=== PATIENT | male | born 1985 | race Two or more races ===

== ENCOUNTER 2020-01-21 14:47 | Inpatient (IN) | payer MEDICARE, OTHER ==
[~2020-01-21] VITALS: Ht 167.6 cm; Wt 85.3 kg
[2020-01-21] MEDS ORDERED: ONDANSETRON HCL 4MG/2ML INJ IV STA ×2 (15:20→17:23)
[2020-01-21] MEDS ORDERED: SODIUM CHLORIDE 0.9% 1,000 ML IV ONE (15:20)
[2020-01-21] MEDS ORDERED: FAMOTIDINE 20MG/2ML VIAL IV STA (15:20)
[2020-01-21] MEDS ORDERED: KETOROLAC 30MG/ML VIAL IV STA (15:20)
[2020-01-21 15:37] LABS: BASOPHILS % 0.7 % (0.0-2.0); EOSINOPHILS % 0.1 % (0.0-5.0); HEMATOCRIT. 51.7 % (42.0-52.0); HEMOGLOBIN. 17.8 g/dL (14.0-18.0); LYMPHOCYTES % 17.8 % (20.0-50.0); MEAN CORPUSCULAR HEMOGLOBIN 30.9 pg (28.0-32.0); MEAN CORPUSCULAR VOLUME 89.5 fL (80.0-94.0); MEAN PLATELET VOLUME 8.9 fl (7.4-10.4); MONOCYTES % 9.7 % (2.0-8.0); NEUTROPHILS % 71.7 % (40.0-76.0); PLATELET 355 x1000/uL (130-400); RED BLOOD CELL COUNT 5.78 mill/uL (4.7-6.1)
[2020-01-21 15:40] LABS: CHLORIDE 100 mEq/L (98-107)
[2020-01-21 15:42] LABS: INR 1.2; PROTHROMBIN TIME 12.5 sec (9.6-11.0)
[2020-01-21 15:45] LABS: ETHANOL BLOOD < 10 mg/dL
[2020-01-21 16:01] LABS: CLARITY URINE CLOUDY (CLEAR); COLOR URINE DARK YELLOW (YELLOW); KETONES URINE 3+ (NEGATIVE); LEUKOCYTE ESTERASE URINE NEGATIVE (NEGATIVE); NITRITE URINE NEGATIVE (NEGATIVE); OCCULT BLOOD URINE 1+ (NEGATIVE); PH URINE 5.5 (4.5-8.0); PROTEIN URINE 2+ (NEGATIVE); SPECIFIC GRAVITY URINE 1.036 (1.005-1.030)
[2020-01-21] MEDS ORDERED: METOCLOPRAMIDE HCL 10MG/2ML VIAL IV ONE (16:15)
[2020-01-21] MEDS ORDERED: DIPHENHYDRAMINE 50MG/ML VIAL IV ONE (16:15)
[2020-01-21 16:36] LABS: *BARBITURATES SCREEN URINE NEGATIVE (NEGATIVE)
[2020-01-21 16:37] LABS: *AMPHETAMINES SCREEN URINE NEGATIVE (NEGATIVE); *BENZODIAZEPINES SCREEN URINE PRESUMTIVE POSITIVE (NEGATIVE); *COCAINE SCREEN URINE NEGATIVE (NEGATIVE); CANNABINOID URINE SCREEN PRESUMTIVE POSITIVE (NEGATIVE); METHADONE URINE SCREEN NEGATIVE (NEGATIVE); OPIATES URINE SCREEN NEGATIVE (NEGATIVE); PHENCYCLIDINE URINE SCREEN NEGATIVE (NEGATIVE)
[2020-01-21] MEDS ORDERED: MORPHINE SULFATE 4 MG/ML CPJ (NOT FOR IM USE) IV STA (17:23)
[2020-01-21] MEDS ORDERED: MORPHINE SULFATE 4 MG/ML CPJ (NOT FOR IM USE) IV ONE (18:45)
[2020-01-21] MEDS ORDERED: CLONIDINE 0.1MG TABLET PO PRN (20:30)
[2020-01-21] MEDS ORDERED: MAGNESIUM/ALUMINUM HYDROXIDE/SIMETHICONE 30ML UDC PO PRN (20:30)
[2020-01-21] MEDS ORDERED: IPRATROPIUM/ALBUTEROL 0.5-3(2.5)MG/3ML NEB NEB PRN (20:30)
[2020-01-21] MEDS ORDERED: ACETAMINOPHEN 325MG TABLET PO PRN (20:30)
[2020-01-21] MEDS ORDERED: ENOXAPARIN 40MG/0.4ML SYR SUBCUT SCH (21:00)
[2020-01-21] MEDS ORDERED: CEFTRIAXONE 1 G PREMIX 50 ML IV SCH (21:00)
[2020-01-21] MEDS: ONDANSETRON HCL 4MG/2ML INJ IV PRN (21:15)
[2020-01-21] MEDS ORDERED: HALOPERIDOL LACTATE 5MG/ML VIAL IM ONE (21:30)
[2020-01-21] MEDS: SODIUM CHLORIDE 0.9% 1,000 ML IV SCH (21:46)
[2020-01-21 23:05] VITALS: BP 145/84
[2020-01-22 00:23] LABS: CHLORIDE 103 mEq/L (98-107)
[2020-01-22 00:32] LABS: CREATINE KINASE 419 IU/L (39-308)
[2020-01-22 00:33] LABS: CREATINE KINASE MB FRACTION 1.1 ng/mL (0.5-3.6)
[2020-01-22] MEDS ORDERED: DIVA500T3 PO ×2 (03:22→03:31)
[2020-01-22] MEDS ORDERED: QUET25TA PO (03:23)
[2020-01-22 04:00] VITALS: BP 150/87
[2020-01-22] MEDS: ONDANSETRON HCL 4MG/2ML INJ IV PRN ×3 (04:51→21:34)
[2020-01-22] MEDS: HYDROCODONE/ACETAMINOPHEN 5/325MG TABLET PO PRN ×4 (06:17→22:22)
[2020-01-22 06:59] LABS: BASOPHILS % 0.4 % (0.0-2.0); EOSINOPHILS % 0.3 % (0.0-5.0); HEMATOCRIT. 44.5 % (42.0-52.0); HEMOGLOBIN. 15.2 g/dL (14.0-18.0); LYMPHOCYTES % 17.8 % (20.0-50.0); MEAN CORPUSCULAR HEMOGLOBIN 30.8 pg (28.0-32.0); MEAN PLATELET VOLUME 8.8 fl (7.4-10.4); MONOCYTES % 9.7 % (2.0-8.0); NEUTROPHILS % 71.8 % (40.0-76.0); PLATELET 262 x1000/uL (130-400); RED BLOOD CELL COUNT 4.95 mill/uL (4.7-6.1); RED CELL DISTRIBUTION WIDTH 14.8 % (11.6-14.6)
[2020-01-22 07:01] LABS: LDL CHOLESTEROL 117 mg/dL (5-100)
[2020-01-22 07:02] LABS: CREATINE KINASE 437 IU/L (39-308); HDL CHOLESTEROL 38 mg/dL (40-59)
[2020-01-22 07:04] LABS: CREATINE KINASE MB FRACTION 1.2 ng/mL (0.5-3.6)
[2020-01-22 08:00] VITALS: BP 131/81
[2020-01-22] MEDS: SODIUM CHLORIDE 0.9% 1,000 ML IV SCH (09:00)
[2020-01-22 11:19] LABS: UCG SCREEN NEGATIVE
[2020-01-22 12:00] VITALS: BP 125/74
[2020-01-22] MEDS: PANTOPRAZOLE SODIUM 40 MG/VIAL IV SCH (13:42)
[2020-01-22] MEDS ORDERED: METOCLOPRAMIDE HCL 10MG/2ML VIAL IV PRN (13:45)
[2020-01-22] MEDS: DIVALPROEX SODIUM 500MG DR TABLET PO SCH ×2 (15:00→21:29)
[2020-01-22 16:00] VITALS: BP 116/71
[2020-01-22] MEDS ORDERED: FOLIC ACID 1 MG, THIAMINE HCL 100 MG, MVI, ADULT NO.1 10 ML in DEXTROSE 5% WATER 1,000 ML IV NR ×4 (18:00)
[2020-01-22 20:00] VITALS: BP 116/77
[2020-01-22] MEDS ORDERED: CEFTRIAXONE 1,000 MG in DEXTROSE 5% WATER 50 ML IV SCH (21:00)
[2020-01-22] MEDS: DOCUSATE SODIUM 100MG CAPSULE PO PRN (21:41)
[2020-01-23] VITALS: BP 109/61
[2020-01-23 04:00] VITALS: BP 106/68
[2020-01-23] MEDS: SODIUM CHLORIDE 0.9% 1,000 ML IV SCH ×3 (05:41→22:37)
[2020-01-23 06:16] LABS: CHLORIDE 102 mEq/L (98-107)
[2020-01-23 06:23] LABS: BASOPHILS % 0.5 % (0.0-2.0); EOSINOPHILS % 1.9 % (0.0-5.0); HEMATOCRIT. 43.5 % (42.0-52.0); HEMOGLOBIN. 14.6 g/dL (14.0-18.0); LYMPHOCYTES % 47.2 % (20.0-50.0); MEAN CORPUSCULAR HEMOGLOBIN 30.6 pg (28.0-32.0); MEAN CORPUSCULAR VOLUME 90.9 fL (80.0-94.0); MEAN PLATELET VOLUME 8.6 fl (7.4-10.4); MONOCYTES % 9.1 % (2.0-8.0); NEUTROPHILS % 41.3 % (40.0-76.0); PLATELET 224 x1000/uL (130-400); RED BLOOD CELL COUNT 4.78 mill/uL (4.7-6.1); RED CELL DISTRIBUTION WIDTH 14.3 % (11.6-14.6)
[2020-01-23 06:31] LABS: PHOSPHORUS 3.8 mg/dL (2.5-4.9)
[2020-01-23 08:00] VITALS: BP 115/62
[2020-01-23] MEDS: DOCUSATE SODIUM 100MG CAPSULE PO PRN (08:53)
[2020-01-23] MEDS: PANTOPRAZOLE SODIUM 40 MG/VIAL IV SCH (08:53)
[2020-01-23] MEDS: DIVALPROEX SODIUM 500MG DR TABLET PO SCH ×2 (08:53→20:51)
[2020-01-23] MEDS: HYDROCODONE/ACETAMINOPHEN 5/325MG TABLET PO PRN ×3 (09:38→20:55)
[2020-01-23] MEDS: BISACODYL 10MG SUPP PR PRN (11:47)
[2020-01-23 12:00] VITALS: BP 149/98
[2020-01-23] MEDS: ONDANSETRON HCL 4MG/2ML INJ IV PRN ×2 (13:03→21:02)
[2020-01-23 16:00] VITALS: BP 149/94
[2020-01-23 20:00] VITALS: BP 112/82
[2020-01-24] VITALS: BP 119/74
[2020-01-24 04:00] VITALS: BP 103/56
[2020-01-24] MEDS: ONDANSETRON HCL 4MG/2ML INJ IV PRN (06:36)
[2020-01-24 07:05] LABS: BASOPHILS % 0.2 % (0.0-2.0); CHLORIDE 105 mEq/L (98-107); EOSINOPHILS % 2.3 % (0.0-5.0); HEMATOCRIT. 42.5 % (42.0-52.0); HEMOGLOBIN. 14.6 g/dL (14.0-18.0); MEAN CORPUSCULAR HEMOGLOBIN 30.9 pg (28.0-32.0); MEAN CORPUSCULAR VOLUME 90.1 fL (80.0-94.0); MEAN PLATELET VOLUME 8.4 fl (7.4-10.4); MONOCYTES % 10.4 % (2.0-8.0); NEUTROPHILS % 49.1 % (40.0-76.0); PLATELET 227 x1000/uL (130-400); RED BLOOD CELL COUNT 4.71 mill/uL (4.7-6.1); RED CELL DISTRIBUTION WIDTH 14.5 % (11.6-14.6)
[2020-01-24 08:00] VITALS: BP 116/78
[2020-01-24] MEDS: PANTOPRAZOLE SODIUM 40 MG/VIAL IV SCH (09:28)
[2020-01-24] MEDS: DIVALPROEX SODIUM 500MG DR TABLET PO SCH (09:29)
[2020-01-24] MEDS: SODIUM CHLORIDE 0.9% 1,000 ML IV SCH (09:33)
[2020-01-24] MEDS: BISACODYL 10MG SUPP PR PRN (09:41)
[2020-01-24 12:00] VITALS: BP 121/71
[2020-01-24] MEDS ORDERED: OMEP20CA14 MT (12:02)
[2020-01-24] MEDS ORDERED: ATOR10TA69 MT (12:02)
[2020-01-24 15:00] VITALS: BP 121/71
[2020-01-24 16:00] VITALS: BP 129/77
== END 2020-01-24 16:23 | disposition home or self-care (01) | DRG 384 ==
LOC: ER 14:58 → 6EST 19:20 → ENRESERV 20:40 → 6EST 01-23 21:29
PROVIDERS: ADMIT Internal Medicine; ATTEND Internal Medicine
DX: K27.9 Peptic ulcer, site unspecified, unspecified as acute or chronic, without hemorrhage or perforation (principal); N39.0 Urinary tract infection, site not specified; K29.70 Gastritis, unspecified, without bleeding; K57.30 Diverticulosis of large intestine without perforation or abscess without bleeding; E78.5 Hyperlipidemia, unspecified; F20.9 Schizophrenia, unspecified; F17.210 Nicotine dependence, cigarettes, uncomplicated; F12.10 Cannabis abuse, uncomplicated; J45.909 Unspecified asthma, uncomplicated; R80.9 Proteinuria, unspecified; Z87.11 Personal history of peptic ulcer disease; Z79.899 Other long term (current) drug therapy; Z71.41 Alcohol abuse counseling and surveillance of alcoholic; Z71.6 Tobacco abuse counseling
CPT/HCPCS: 36415; 74176; 80048; 80053; 80061; 80305; 80320; 81003; 81025; 82550; 82553; 83735; 84100; 84443; 84484; 85025; 93005; 93970; 96374; 99285; C9113; J0696; J1200; J1630; J1885; J2270; J2405; J2765; J3411; J3490; J7030; J7060; J7070; G0480

== ENCOUNTER 2020-03-21 02:02 | Inpatient (IN) | payer MEDICARE, OTHER ==
[~2020-03-21] VITALS: Ht 167.6 cm; Wt 73.0 kg
[~2020-03-21 02:02] MED LIST: ATOR10TA69 MT; DIVA500T3 PO; OMEP20CA14 MT; QUET25TA PO
[2020-03-21] MEDS ORDERED: ONDANSETRON HCL 4MG/2ML INJ IV STA (02:17)
[2020-03-21] MEDS ORDERED: SODIUM CHLORIDE 0.9% 1,000 ML IV ONE (02:30)
[2020-03-21] MEDS ORDERED: LORAZEPAM 2MG/ML CPJ IM ONE (03:00)
[2020-03-21] MEDS ORDERED: HALOPERIDOL LACTATE 5MG/ML VIAL IM ONE (03:00)
[2020-03-21 03:20] LABS: CHLORIDE 91 mEq/L (98-107)
[2020-03-21 03:24] LABS: ETHANOL BLOOD < 10 mg/dL
[2020-03-21 03:34] LABS: HEMATOCRIT. 55.1 % (42.0-52.0); MEAN CORPUSCULAR HEMOGLOBIN 30.7 pg (28.0-32.0); MEAN CORPUSCULAR VOLUME 89.1 fL (80.0-94.0); MEAN PLATELET VOLUME 8.8 fl (7.4-10.4); PLATELET 432 x1000/uL (130-400); RED BLOOD CELL COUNT 6.19 mill/uL (4.7-6.1); RED CELL DISTRIBUTION WIDTH 14.8 % (11.6-14.6)
[2020-03-21] MEDS: FAMOTIDINE 20MG/2ML VIAL IV SCH ×2 (03:37→10:18)
[2020-03-21] MEDS ORDERED: MORPHINE SULFATE 4 MG/ML CPJ (NOT FOR IM USE) IV NR (04:30)
[2020-03-21] MEDS ORDERED: CEFTRIAXONE 1 G PREMIX 50 ML IV ONE (05:15)
[2020-03-21 05:23] LABS: PLATELET ESTIMATE INCREASED
[2020-03-21] MEDS ORDERED: DOCUSATE SODIUM 100MG CAPSULE PO PRN ×2 (07:15→17:15)
[2020-03-21] MEDS ORDERED: ACETAMINOPHEN 325MG TABLET PO PRN ×2 (07:15→17:15)
[2020-03-21] MEDS ORDERED: GUAIFENESIN 200MG/10ML SUGAR FREE UDC PO PRN ×2 (07:15→18:15)
[2020-03-21] MEDS ORDERED: CLONIDINE 0.1MG TABLET PO PRN ×2 (07:15→17:15)
[2020-03-21] MEDS ORDERED: IPRATROPIUM/ALBUTEROL 0.5-3(2.5)MG/3ML NEB HHN PRN ×2 (07:15→18:15)
[2020-03-21] MEDS ORDERED: HYDROCODONE/ACETAMINOPHEN 10/325MG TABLET PO PRN (07:15)
[2020-03-21] MEDS ORDERED: CEFTRIAXONE 1 G PREMIX 50 ML IV SCH (07:15)
[2020-03-21] MEDS ORDERED: SODIUM CHLORIDE 0.45% 1,000 ML IV SCH ×2 (07:15→18:15)
[2020-03-21] MEDS ORDERED: LORAZEPAM 2MG/ML CPJ IV PRN (07:15)
[2020-03-21] MEDS ORDERED: ENOXAPARIN 40MG/0.4ML SYR SUBCUT SCH (07:15)
[2020-03-21] MEDS ORDERED: DIPHENHYDRAMINE 50MG/ML VIAL IV PRN ×2 (07:15→17:15)
[2020-03-21] MEDS ORDERED: MAGNESIUM/ALUMINUM HYDROXIDE/SIMETHICONE 30ML UDC PO PRN ×2 (07:15→18:15)
[2020-03-21] MEDS ORDERED: ONDANSETRON HCL 4MG/2ML INJ IV PRN (07:15)
[2020-03-21 08:00] VITALS: BP 150/98
[2020-03-21 08:19] LABS: CLARITY URINE TURBID (CLEAR); COLOR URINE DARK YELLOW (YELLOW); KETONES URINE TRACE (NEGATIVE); LEUKOCYTE ESTERASE URINE TRACE (NEGATIVE); NITRITE URINE NEGATIVE (NEGATIVE); OCCULT BLOOD URINE 3+ (NEGATIVE); PROTEIN URINE 2+ (NEGATIVE); SPECIFIC GRAVITY URINE 1.026 (1.005-1.030)
[2020-03-21 08:57] VITALS: BP 150/88
[2020-03-21] MEDS: DIVALPROEX SODIUM 500MG DR TABLET PO SCH ×2 (10:18→16:45)
[2020-03-21 10:31] LABS: BASOPHILS % 0.2 % (0.0-2.0); HEMATOCRIT. 53.8 % (42.0-52.0); HEMOGLOBIN. 18.5 g/dL (14.0-18.0); LYMPHOCYTES % 7.3 % (20.0-50.0); MEAN CORPUSCULAR VOLUME 90.1 fL (80.0-94.0); MEAN PLATELET VOLUME 8.6 fl (7.4-10.4); MONOCYTES % 7.8 % (2.0-8.0); NEUTROPHILS % 84.7 % (40.0-76.0); PLATELET 355 x1000/uL (130-400); RED BLOOD CELL COUNT 5.98 mill/uL (4.7-6.1); RED CELL DISTRIBUTION WIDTH 14.8 % (11.6-14.6)
[2020-03-21] MEDS: QUETIAPINE FUMARATE 25MG TABLET PO SCH (10:43)
[2020-03-21 12:00] VITALS: BP 136/82
[2020-03-21] MEDS ORDERED: SODIUM CHLORIDE 0.9% INJ 3ML FLUSH IVF SCH (14:00)
[2020-03-21 15:57] LABS: PHOSPHORUS 4.7 mg/dL (2.5-4.9)
[2020-03-21 16:00] VITALS: BP 135/75
[2020-03-21] MEDS: SODIUM CHLORIDE 0.45% 1,000 ML IV SCH (18:30)
[2020-03-21 20:00] VITALS: BP 132/80
[2020-03-21] MEDS: ATORVASTATIN CALCIUM 10MG TABLET PO SCH (20:57)
[2020-03-21] MEDS: SODIUM CHLORIDE 0.9% INJ 3ML FLUSH IVF SCH ×2 (20:57→22:00)
[2020-03-21] MEDS ORDERED: ATORVASTATIN CALCIUM 10MG TABLET PO SCH (21:00)
[2020-03-22] VITALS: BP 133/91
[2020-03-22] MEDS: ONDANSETRON HCL 4MG/2ML INJ IV PRN (00:19)
[2020-03-22] MEDS: HYDROCODONE/ACETAMINOPHEN 10/325MG TABLET PO PRN ×4 (00:20→20:55)
[2020-03-22 04:00] VITALS: BP 127/80
[2020-03-22] MEDS: SODIUM CHLORIDE 0.9% INJ 3ML FLUSH IVF SCH ×4 (05:05→21:01)
[2020-03-22] MEDS: CEFTRIAXONE 1,000 MG in DEXTROSE 5% WATER 50 ML IV SCH (05:05)
[2020-03-22 06:43] LABS: BASOPHILS % 0.3 % (0.0-2.0); EOSINOPHILS % 0.4 % (0.0-5.0); HEMOGLOBIN. 16.1 g/dL (14.0-18.0); MEAN CORPUSCULAR HEMOGLOBIN 30.5 pg (28.0-32.0); MEAN CORPUSCULAR VOLUME 89.3 fL (80.0-94.0); MEAN PLATELET VOLUME 8.5 fl (7.4-10.4); MONOCYTES % 9.8 % (2.0-8.0); NEUTROPHILS % 72.5 % (40.0-76.0); PLATELET 317 x1000/uL (130-400); RED BLOOD CELL COUNT 5.27 mill/uL (4.7-6.1); RED CELL DISTRIBUTION WIDTH 14.3 % (11.6-14.6)
[2020-03-22 07:02] LABS: CHLORIDE 89 mEq/L (98-107)
[2020-03-22 08:00] VITALS: BP 138/91
[2020-03-22] MEDS: QUETIAPINE FUMARATE 25MG TABLET PO SCH (09:29)
[2020-03-22] MEDS: ENOXAPARIN 30MG/0.3ML SYR SUBCUT SCH (09:29)
[2020-03-22] MEDS: DIVALPROEX SODIUM 500MG DR TABLET PO SCH ×2 (09:29→16:10)
[2020-03-22] MEDS: SODIUM CHLORIDE 0.45% 1,000 ML IV SCH (09:33)
[2020-03-22] MEDS ORDERED: POTASSIUM CHLORIDE INJ 40 MEQ in DEXT 5% WATER 250 ML IV SCH (11:00)
[2020-03-22] MEDS: SODIUM CHLORIDE 0.9% 1,000 ML IV SCH ×2 (11:13→23:05)
[2020-03-22 11:48] VITALS: BP 126/79
[2020-03-22 11:58] LABS: PHOSPHORUS 2.6 mg/dL (2.5-4.9)
[2020-03-22 16:00] VITALS: BP 143/94
[2020-03-22 20:00] VITALS: BP 127/94
[2020-03-22] MEDS: ATORVASTATIN CALCIUM 10MG TABLET PO SCH (20:53)
[2020-03-23] VITALS: BP 133/95
[2020-03-23] MEDS: LORAZEPAM 2MG/ML CPJ IV PRN ×2 (00:39→18:10)
[2020-03-23 04:00] VITALS: BP 114/82
[2020-03-23] MEDS: SODIUM CHLORIDE 0.9% INJ 3ML FLUSH IVF SCH ×3 (05:10→21:57)
[2020-03-23] MEDS: CEFTRIAXONE 1,000 MG in DEXTROSE 5% WATER 50 ML IV SCH (06:32)
[2020-03-23 07:26] LABS: CHLORIDE 96 mEq/L (98-107)
[2020-03-23 07:30] LABS: BASOPHILS % 0.2 % (0.0-2.0); EOSINOPHILS % 1.3 % (0.0-5.0); HEMATOCRIT. 44.6 % (42.0-52.0); HEMOGLOBIN. 15.1 g/dL (14.0-18.0); LYMPHOCYTES % 28.2 % (20.0-50.0); MEAN CORPUSCULAR HEMOGLOBIN 30.6 pg (28.0-32.0); MEAN CORPUSCULAR VOLUME 90.2 fL (80.0-94.0); MEAN PLATELET VOLUME 8.5 fl (7.4-10.4); MONOCYTES % 10.2 % (2.0-8.0); NEUTROPHILS % 60.1 % (40.0-76.0); PLATELET 282 x1000/uL (130-400); RED BLOOD CELL COUNT 4.94 mill/uL (4.7-6.1); RED CELL DISTRIBUTION WIDTH 13.9 % (11.6-14.6)
[2020-03-23 07:34] LABS: PHOSPHORUS 2.2 mg/dL (2.5-4.9)
[2020-03-23 08:00] VITALS: BP 124/77
[2020-03-23] MEDS: QUETIAPINE FUMARATE 25MG TABLET PO SCH (08:58)
[2020-03-23] MEDS: DIVALPROEX SODIUM 500MG DR TABLET PO SCH ×2 (08:58→17:27)
[2020-03-23] MEDS: ENOXAPARIN 30MG/0.3ML SYR SUBCUT SCH (08:59)
[2020-03-23] MEDS: ONDANSETRON HCL 4MG/2ML INJ IV PRN ×2 (08:59→18:10)
[2020-03-23 12:00] VITALS: BP 132/92
[2020-03-23] MEDS: SODIUM CHLORIDE 0.9% 1,000 ML IV SCH (13:28)
[2020-03-23] MEDS: HYDROCODONE/ACETAMINOPHEN 10/325MG TABLET PO PRN (13:35)
[2020-03-23] MEDS ORDERED: DEXT 5%/0.45% NACL 1000ML 1,000 ML IV SCH (14:30)
[2020-03-23 16:00] VITALS: BP 136/90
[2020-03-23 20:00] VITALS: BP 134/89
[2020-03-23] MEDS: ATORVASTATIN CALCIUM 10MG TABLET PO SCH (21:57)
[2020-03-24] VITALS: BP 126/85
[2020-03-24] MEDS ORDERED: DEXT 5%/0.45% NACL 1000ML 1,000 ML IV SCH
[2020-03-24] MEDS: SODIUM CHLORIDE 0.9% 1,000 ML IV SCH (01:45)
[2020-03-24] MEDS: ONDANSETRON HCL 4MG/2ML INJ IV PRN (02:55)
[2020-03-24 04:00] VITALS: BP 124/81
[2020-03-24] MEDS: CEFTRIAXONE 1,000 MG in DEXTROSE 5% WATER 50 ML IV SCH (05:20)
[2020-03-24] MEDS: SODIUM CHLORIDE 0.9% INJ 3ML FLUSH IVF SCH ×2 (05:28→22:09)
[2020-03-24] MEDS ORDERED: ONDANSETRON HCL 4MG/2ML INJ IV PRN ×2 (06:00→15:30)
[2020-03-24 06:23] LABS: BASOPHILS % 0.2 % (0.0-2.0); EOSINOPHILS % 0.7 % (0.0-5.0); HEMOGLOBIN. 16.1 g/dL (14.0-18.0); LYMPHOCYTES % 17.1 % (20.0-50.0); MEAN CORPUSCULAR HEMOGLOBIN 31.1 pg (28.0-32.0); MEAN CORPUSCULAR VOLUME 90.6 fL (80.0-94.0); MEAN PLATELET VOLUME 8.3 fl (7.4-10.4); PLATELET 303 x1000/uL (130-400); RED BLOOD CELL COUNT 5.19 mill/uL (4.7-6.1); RED CELL DISTRIBUTION WIDTH 14.1 % (11.6-14.6)
[2020-03-24 06:43] LABS: CHLORIDE 93 mEq/L (98-107)
[2020-03-24] MEDS: MORPHINE SULFATE 2 MG/ML CPJ (NOT FOR IM USE) IV PRN ×2 (07:08→09:51)
[2020-03-24 08:00] VITALS: BP 136/83
[2020-03-24] MEDS ORDERED: PNEUMOCOCCAL 23-VAL P-SAC VAC 0.5 ML IM ONE (08:00)
[2020-03-24] MEDS: ENOXAPARIN 40MG/0.4ML SYR SUBCUT SCH (09:00)
[2020-03-24] MEDS: QUETIAPINE FUMARATE 25MG TABLET PO SCH (09:50)
[2020-03-24] MEDS: DIVALPROEX SODIUM 500MG DR TABLET PO SCH ×2 (09:50→20:55)
[2020-03-24] MEDS ORDERED: INFLUENZA VACCINE 05/PF 0.5 ML VIAL IM ONE (10:00)
[2020-03-24 12:00] VITALS: BP 117/75
[2020-03-24] MEDS ORDERED: LIDOCAINE 1%/EPI 1:200,000 10 ML VIAL IJ ONE (13:23)
[2020-03-24] MEDS ORDERED: VANCOMYCIN HCL 1 GM/VIAL ONE (13:23)
[2020-03-24] MEDS ORDERED: BACITRACIN 50,000 UNITS/VIAL ONE (13:24)
[2020-03-24] MEDS ORDERED: PROPOFOL 200MG/20ML VIAL IV ONE (14:04)
[2020-03-24] MEDS ORDERED: KETOROLAC 30MG/ML VIAL ONE (14:09)
[2020-03-24] MEDS ORDERED: ONDANSETRON HCL 4MG/2ML INJ ONE (14:09)
[2020-03-24] MEDS ORDERED: LIDOCAINE HCL 2% JELLY 5ML ONE (14:09)
[2020-03-24] MEDS ORDERED: LIDOCAINE HCL/PF 1% 10 MG/ML 5ML VIAL ONE (14:09)
[2020-03-24] MEDS ORDERED: DEXAMETHASONE 4MG/ML 1ML VIAL ONE (14:09)
[2020-03-24] MEDS ORDERED: METOCLOPRAMIDE HCL 10MG/2ML VIAL ONE (14:09)
[2020-03-24] MEDS ORDERED: MIDAZOLAM HCL 2 MG/2 ML VIAL ONE (14:15)
[2020-03-24] MEDS ORDERED: BUPIVACAINE HCL/PF 0.5% (5MG/ML) 10ML ONE (15:42)
[2020-03-24] MEDS: HYDROMORPHONE HCL/PF 2MG/ML CPJ IV PRN ×4 (16:22→17:07)
[2020-03-24] MEDS ORDERED: DIPHENHYDRAMINE INJ IV PRN (16:30)
[2020-03-24] MEDS ORDERED: ONDANSETRON INJ IV PRN (16:30)
[2020-03-24] MEDS ORDERED: NALOXONE INJ IV PRN (16:30)
[2020-03-24] MEDS ORDERED: HYDROMORPHONE PCA 10MG/50ML IV PRN (16:30)
[2020-03-24 20:00] VITALS: BP 149/87
[2020-03-24] MEDS: ATORVASTATIN CALCIUM 10MG TABLET PO SCH (20:55)
[2020-03-24] MEDS ORDERED: CEFAZOLIN SODIUM 1000MG/VIAL IV SCH (22:00)
[2020-03-24] MEDS: CEFAZOLIN 1000MG PREMIX 50 ML IV SCH (22:09)
[2020-03-25] VITALS (7 sets, daily range): BP systolic 124–144; BP diastolic 77–93
[2020-03-25] MEDS: SODIUM CHLORIDE 0.9% INJ 3ML FLUSH IVF SCH ×2 (05:52→13:42)
[2020-03-25] MEDS: CEFTRIAXONE 1,000 MG in DEXTROSE 5% WATER 50 ML IV SCH (05:52)
[2020-03-25 07:54] LABS: CHLORIDE 93 mEq/L (98-107)
[2020-03-25 07:56] LABS: BASOPHILS % 0.1 % (0.0-2.0); EOSINOPHILS % 0.2 % (0.0-5.0); HEMATOCRIT. 41.9 % (42.0-52.0); HEMOGLOBIN. 14.3 g/dL (14.0-18.0); LYMPHOCYTES % 16.3 % (20.0-50.0); MEAN CORPUSCULAR HEMOGLOBIN 31.2 pg (28.0-32.0); MEAN CORPUSCULAR VOLUME 91.4 fL (80.0-94.0); MEAN PLATELET VOLUME 8.7 fl (7.4-10.4); MONOCYTES % 10.7 % (2.0-8.0); NEUTROPHILS % 72.7 % (40.0-76.0); PLATELET 227 x1000/uL (130-400); RED BLOOD CELL COUNT 4.58 mill/uL (4.7-6.1); RED CELL DISTRIBUTION WIDTH 13.8 % (11.6-14.6)
[2020-03-25] MEDS: CEFAZOLIN 1000MG PREMIX 50 ML IV SCH ×2 (08:25→16:27)
[2020-03-25] MEDS: QUETIAPINE FUMARATE 25MG TABLET PO SCH (08:31)
[2020-03-25] MEDS: DIVALPROEX SODIUM 500MG DR TABLET PO SCH ×2 (08:31→16:27)
[2020-03-25] MEDS: ENOXAPARIN 40MG/0.4ML SYR SUBCUT SCH (08:33)
[2020-03-25] MEDS: HYDROCODONE/ACETAMINOPHEN 10/325MG TABLET PO PRN (15:19)
== END 2020-03-25 17:29 | disposition home or self-care (01) | DRG 510 ==
LOC: ER 02:02 → 5WST 06:43 → ENRESERV 07:40 → 6EST 03-23 17:39
PROVIDERS: ADMIT Internal Medicine; ATTEND Internal Medicine
PROC: 0PHJ04Z Insertion of Internal Fixation Device into Left Radius, Open Approach (ICD-10-PCS; principal; 2020-03-24)
DX: S52.552A Other extraarticular fracture of lower end of left radius, initial encounter for closed fracture (principal); N17.0 Acute kidney failure with tubular necrosis; R65.10 Systemic inflammatory response syndrome (SIRS) of non-infectious origin without acute organ dysfunction; E87.1 Hypo-osmolality and hyponatremia; N20.0 Calculus of kidney; E86.0 Dehydration; Z20.828 Contact with and (suspected) exposure to other viral communicable diseases; E87.6 Hypokalemia; F20.9 Schizophrenia, unspecified; D75.1 Secondary polycythemia; F17.200 Nicotine dependence, unspecified, uncomplicated; W18.39XA Other fall on same level, initial encounter; Y93.89 Activity, other specified; Y92.89 Other specified places as the place of occurrence of the external cause; Y99.8 Other external cause status; Z79.899 Other long term (current) drug therapy; F31.9 Bipolar disorder, unspecified
CPT/HCPCS: 36415; 71045; 73090; 73100; 74176; 76000; 80048; 80053; 80307; 80320; 80329; 81003; 82330; 82533; 82550; 83605; 83735; 83930; 83935; 83970; 84100; 84443; 85025; 90686; 90732; 93005; 97162; 99285; J0690; J0696; J1100; J1170; J1200; J1630; J1650; J1885; J2060; J2250; J2270; J2405; J2704; J2765; J3370; J3480; J3490; J7030; J7060; G0480; U0003-CS